=== PATIENT | female | born 2000 | race Caucasian/White ===

== ENCOUNTER → 2024-10-28 11:53 | Outpatient (BNVA) | payer SELFPAY | DX: R50.9 Fever, unspecified (principal) | CPT/HCPCS: 87400; 87426 ==

== ENCOUNTER 2025-03-17 08:41 | Emergency (ER) | payer MEDICAID, SELFPAY ==
[2025-03-17 08:49] VITALS: BP 116/62; PULSE 82; RESP 18; TEMP 36.7; O2SAT 100; BMI 20.6
--- NOTE | 2025-03-17 09:39 | XRR_ITS ---
PROCEDURE INFORMATION: Exam: XR Pelvis Exam date and time: 03/17/2025 9:46 AM Age: 24 years old Clinical indication: Pelvic pain post fall TECHNIQUE: Imaging protocol: Radiologic exam of the pelvis. Views: 1 or 2 view. COMPARISON: No relevant prior studies available. FINDINGS: Bones/joints: Unremarkable. No acute fracture. Soft tissues: Unremarkable. XR/XR pelvis 1-2V* [id number] IMPRESSION: No acute findings.
--- NOTE | 2025-03-17 09:39 | XRR_ITS ---
PROCEDURE INFORMATION: Exam: XR Left Foot Exam date and time: 03/17/2025 9:46 AM Age: 24 years old Clinical indication: Left; Lt lateral foot pain post fall down stairs this am TECHNIQUE: Imaging protocol: Radiologic exam of the left foot. Views: 3 or more views. COMPARISON: No relevant prior studies available. FINDINGS: Bones/joints: There is an acute longitudinal minimally displaced fracture involving the 5th metatarsal. No other fracture noted. Soft tissues: Normal. XR/XR foot LT min 3V* [id number] IMPRESSION: Acute fracture of the 5th metatarsal
--- NOTE | 2025-03-17 09:40 | ED_ITS ---
HPI - Extremity Problem General: Chief complaint: Extremity Injury, Lower Stated complaint: left foot injury Time Seen by Provider: 03/17/25 08:49 History of Present Illness: Chief complaint is fall on stairs and injury of the left foot. She states she did bruise her left hip but does not think it is broken. She states the pain is all in the foot. She did hit her head on the left side but states her head feels fine and she did not get knocked out and no serious blow or pain. She thinks her head is fine. No neck back chest or abdominal pain or injury. Related Data Previous Rx's ?Medication ?Instructions ?Recorded albuterol sulfate 90 mcg/actuation 2 puff inhalation Q 6H PRN 10/28/24 aerosol inhaler shortness of breath or wheez ing #8.5 grams xomeuanyiqjebla-faebmjbxgmlhdoi-IR 5 ml PO Q6H PRN col d symptoms #118 10/28/24 2 mg-30 mg-10 mg/5 mL oral syrup mL (Bromfed DM) ondansetron 4 mg disintegrating 4 mg PO Q6H PRN nausea and 10/28/24 tablet vomiting #12 tabs cyclobenzaprine 10 mg tablet 10 mg PO Q8H #20 tabs Allergies Allergy/AdvReac Type Severity Reaction Status Date / Time hydrocodone Allergy Severe ALGY-Difficulty Verified 10/28/24 11:48 Breathing [facility] ED PFSH: Social History Smoking and tobacco/nicotine status: never used tobacco/nicotine Physical Exam Narrative: EXAM NARRATIVE: Alert oriented talkative in no acute distress. Neck is supple. Pupils equal reactive to light. No vertebral tenderness over the neck or back. No bruising or external signs of trauma to the trunk or abdomen in exposed areas. No abdominal tenderness. No chest wall tenderness. Lung sounds are clear and heart regular rate and rhythm. Remains warm well-perfused. She has bruising on the left foot. Intact pulses motor and sensation. Moves ankle knee and hip freely. She has no pain with range of motion of the left hip. No pain with sitting up and movement of the back and no vertebral tenderness or bruising over the back. No rash in exposed areas. Pupils equal reactive to light. Full range ocular motion. Clear speech and intact motor and sensation. Course Vital Signs: Vital signs: Vital Signs Temperature 98.1 F 03/17/25 08:49 Pulse Rate 82 03/17/25 08:49 Respiratory Rate 18 03/17/25 08:49 Blood Pressure 116/62 03/17/25 08:49 Pulse Oximetry 100 03/17/25 08:49 Oxygen Delivery Me thod Room Air 03/17/25 08:49 MDM - Extremity (Nontraumatic) Medical Decision Making I ordered x-ray of the left foot and pelvic x-ray. Patient declines testing and states she has no male sexual partners and 0 chance of after informed discussion. I discussed imaging of her head which she declines and states her head is fine. I educated regarding head injury precautions. Pelvis x-tarsalray to my independent review and interpretation. She does have 1/5 metatarsal fracture on her left foot. I ordered postop shoe and crutches and advised to keep elevated. I discussed again with CT of the head and she declines. Advised head injury instructions. She states she gets severe vomiting with opiates. Will try Flexeril for pain and have her ice intermittently and elevate and orthopedic follow-up. I advised limits of plain film with her hip and nonweightbearing on that leg until cleared Lab Data Radiology Impressions Foot X-Ray 03/17/25 09:39 IMPRESSION: Acute fracture of the 5th metatarsal Pelvis X-Ray 03/17/25 09:39 IMPRESSION: No acute findings. All radiology interpretation(s) finalized by discharge Discharge Plan Discharge Patient Disposition: Home Clinical Impression: Fracture of left foot Condition: Stable Prescriptions: New cyclobenzaprine 10 mg tablet 10 mg PO Q8H Qty: 20 0RF No Action ondansetron 4 mg tablet,disintegrating 4 mg PO Q6H PRN (Reason: nausea and vomiting) Qty: 12 0RF Rx Instructions: 340b please yldrbytnlkcfhtn-cydaqjpyk-YV [Bromfed DM] 2-30-10 mg/5 mL syrup 5 ml PO Q6H PRN (Reason: cold symptoms) Qty: 118 0RF albuterol sulfate 90 mcg/actuation HFA aerosol inhaler 2 puff inhalation Q6H PRN (Reason: shortness of breath or wheezing) Qty: 8.5 0RF Discharge Orders: Discharge ED (Routine); Ordered 03/17/25 Ordered By: Josias Cerda Referrals: Coke,Job, DO [Physician, Orthopedics] Referral Note: left foot 5th metatarsal fracture Clinical Impression: Fracture of left foot Patient Instructions: Opioid Safety, Pain Management Activity Restrictions/Additional Instructions: Come back if concerning headache, vomiting, confusion. Keep your foot elevated. Come back if loss of feeling to your toes or loss of color, worsening hip pain, any worse or concerns. No weightbearing on your left leg until cleared by orthopedic surgeon. Follow-up with orthopedic surgeon in about 1 week. Print Language: Swiss Coding Level of Care Code ED Sales Leader for Wyatt Spears
[2025-03-17] MEDS: cyclobenzaprine 10 mg Tablet PO (10:30)
[2025-03-17 10:37] VITALS: BP 122/87; PULSE 88; RESP 18; O2SAT 99
== END 2025-03-17 10:40 | disposition home or self-care (01) ==
PROVIDERS: Emergency Provider Emergency Medicine
DX: S92.352A Displaced fracture of fifth metatarsal bone, left foot, initial encounter for closed fracture (principal); W10.9XXA Fall (on) (from) unspecified stairs and steps, initial encounter
CPT/HCPCS: 12345; 72170; 73630; 99284; E0114; J9999

== ENCOUNTER 2025-03-22 10:36 | Emergency (ER) | payer MEDICAID, SELFPAY ==
[2025-03-22 10:36] VITALS: BP 124/76; PULSE 75; RESP 20; TEMP 36.6; O2SAT 100; BMI 20.5
--- NOTE | 2025-03-22 10:50 | XR_ITS ---
WS: [id number] XR ankle LT min 3V* [id number] REASON FOR EXAM: fall FINDINGS: Subacute fracture of the midportion of the fifth metatarsal demonstrated on previous examination of 03/17/2025. No ankle fracture is identified. The joint spaces of the ankle are intact and well preserved. Diffuse soft tissue swelling around the ankle joint. No radiopaque foreign body. XR/XR ankle LT min 3V* [id number] IMPRESSION: Soft tissue swelling of the ankle joint. No acute bone or joint abnormality of the ankle joint. Subacute previously diagnosed fracture of the fifth metatarsal as above.
--- NOTE | 2025-03-22 10:50 | XR_ITS ---
WS: [id number] XR femur LT min 2V* [id number] REASON FOR EXAM: fall FINDINGS: Femoral neck and intertrochanteric region are intact. No abnormality of the femoral head. Femoral shaft is intact with no abnormality. XR/XR femur LT min 2V* [id number] IMPRESSION: No acute abnormality.
[2025-03-22 11:05] VITALS: RESP 18
[2025-03-22] MEDS: morphine 4 mg/mL SDV 1 mL IM (11:05)
[2025-03-22] MEDS: ondansetron hcl ODT 4 mg Tab PO (11:05)
[2025-03-22] MEDS: ketorolac 60 mg/2 mL INJ IM (11:05)
[2025-03-22 11:25] VITALS: BP 118/73; O2SAT 99
--- NOTE | 2025-03-22 12:14 | W.ED.EXTPRO ---
HPI - Extremity Problem General: Chief complaint: Extremity Injury, Lower Stated complaint: left foot injury Time Seen by Provider: 03/22/25 10:38 History of Present Illness: This patient is a 24-year-old white female who presents to the emergency department complaining of left foot pain and left hip pain. Patient states she broke her left foot 2 days ago. She was evaluated here. Today she tripped in the bathroom and landed on her left hip. She also exacerbated the pain in the left foot. Related Data Previous Rx's ?Medication ?Instructions ?Recorded albuterol sulfate 90 mcg/actuation 2 puff inhalation Q6H PRN 10/28/24 aerosol inhaler shortness of breath or wheezing #8.5 grams tzfllnpmkuqowlq-yftvgfvrurcakdm-HY 5 ml PO Q6H PRN cold symptoms #118 10/28/24 2 mg-30 mg-10 mg/5 mL oral syrup mL (Bromfed DM) ondansetron 4 mg disintegrating 4 mg PO Q6H PRN nausea and 10/28/24 tablet vomiting #12 tabs cyclobenzaprine 10 mg tablet 10 mg PO Q8H #20 tabs 03/17/25 Allergies Allergy/AdvReac Type Severity Reaction Status Date / Time hydrocodone Allergy Severe ALGY-Difficulty Verified 10/28/24 11:48 Breathing Review of Systems General: Reports: 10 or more systems reviewed and unremarkable except in HPI and below Musc: Reports: other (Left foot pain, left hip pain) [facility] ED PFSH: Social History Smoking and tobacco/nicotine status: never used tobacco/nicotine Physical Exam Const: COMMON NORMALS: no acute distress, patient oriented x3 and no limitations GENERAL APPEARANCE: cooperative and comfortable HENMT: COMMON NORMALS: normocephalic, atraumatic, Normal nasal mucous membranes and turbinates present, moist oral mucous membranes and oropharynx normal HEAD & SCALP: normal to inspection, normocephalic and atraumatic FACE & SINUS: normal facial exam NOSE: Normal nasal mucous membranes and turbinates present Eye: COMMON NORMALS: Equal, round and reactive pupils present, EOMs intact bilaterally and conjunctivae normal GENERAL EYE: appearance normal, both eyes and all related structures CONJUNCTIVA: Yes conjunctivae normal PUPIL: Yes Equal, round and reactive pupils present Neck/C-Spine: COMMON NORMALS: supple and no JVD Chest: COMMONS NORMALS: normal inspection of the chest Resp: COMMON NORMALS: normal respiratory effort and clear to auscultation bilaterally AUSCULTATION: clear to auscultation bilaterally Cardio: COMMON NORMALS: no JVD, regular rate, regular rhythm, No gallops present (Cardio), No murmurs present (Cardio) and No rub (Cardio) RATE: regular rate RHYTHM: regular rhythm GI: COMMON NORMALS: Normal to inspection, nondistended, normoactive bowel sounds present, Soft to palpation and non-tender AUSCULTATION: Yes normoactive bowel sounds PALPATION: Yes Soft to palpation : COMMON NORMALS: Yes no CVA tenderness BLADDER/KIDNEY EXAM: Yes no CVA tenderness Back/Pelvis: COMMON NORMALS: no CVA tenderness and thoracic and lumbar spine normal to inspection Extremity: COMMON NORMALS: normal to inspection NARRATIVE EXTREMITY EXAM: Patient had an Donny wrap around the left foot. Patient was placed in a postop shoe a couple of days ago following the fractured metatarsal. There is some bruising over the lateral aspect of the left foot. Full range of motion of the left ankle with moderate discomfort. Full range of motion of the left knee with no discomfort. Full range of motion of the left hip with mild discomfort. She does have pain over the greater trochanter to palpation. No gross deformity. Neuro: COMMON NORMALS: patient oriented x3 and CN's II-XII intact bilaterally Psych: COMMON NORMALS: mental status grossly normal, Normal thought process present and cooperative THOUGHT PROCESS: Normal thought process present Skin: COMMON NORMALS: no rashes or lesions noted, turgor normal and no jaundice GENERAL SKIN EXAM: no rashes or lesions noted and turgor normal Course Vital Signs: Vital signs: Vital Signs Temperature 97.8 F 03/22/25 10:36 Pulse Rate 75 03/22/25 10:36 Respiratory Rate 18 03/22/25 11:05 Blood Pressure 118/73 03/22/25 11:25 Pulse Oximetry 99 03/22/25 11:25 Oxygen Delivery Me thod Room Air 03/22/25 10:36 MDM - Extremity (Nontraumatic) Medical Decision Making X-rays of the femur were read by the radiologist as normal. X-rays of the ankle read by the radiologist as normal except for the subacute fracture of the fifth metatarsal. No change from x-ray previously. Patient was given injections of Toradol and morphine for her pain in the emergency department. She was discharged in stable condition. She does have pain medication at home. Recommended she follow-up with her primary care provider regarding the metatarsal fracture with possible referral to Ortho or podiatry. Lab Data Radiology Impressions Ankle X-Ray 03/22/25 10:50 IMPRESSION: Soft tissue swelling of the ankle joint. No acute bone or joint abnormality of the ankle joint. Subacute previously diagnosed fracture of the fifth metatarsal as above. Femur X-Ray 03/22/25 10:50 IMPRESSION: No acute abnormality. All radiology interpretation(s) finalized by discharge Discharge Plan Discharge Patient Disposition: Home Clinical Impression: Fracture of left foot Qualifiers: Encounter type: subsequent encounter Fracture type: closed Fracture healing: with routine healing Qualified Code(s): S92.902D - Unspecified fracture of left foot, subsequent encounter for fracture with routine healing Contusion of hip Qualifiers: Encounter type: initial encounter Laterality: left Qualified Code(s): S70.02XA - Contusion of left hip, initial encounter Condition: Stable Prescriptions: No Action ondansetron 4 mg tablet,disintegrating 4 mg PO Q6H PRN (Reason: nausea and vomiting) Qty: 12 0RF Rx Instructions: 340b please nzsxeqzbfbvwqrn-ubsaahbqb-VX [Bromfed DM] 2-30-10 mg/5 mL syrup 5 ml PO Q6H PRN (Reason: cold symptoms) Qty: 118 0RF albuterol sulfate 90 mcg/actuation HFA aerosol inhaler 2 puff inhalation Q6H PRN (Reason: shortness of breath or wheezing) Qty: 8.5 0RF cyclobenzaprine 10 mg tablet 10 mg PO Q8H Qty: 20 0RF Discharge Orders: Discharge ED (Routine); Ordered 03/22/25 Ordered By: Dewayne Thompson Patient Instructions: Fractures - Metatarsal, Contusion in Adults (ED), Pain Management Print Language: Estonian Coding Level of Care Code ED Hide Puller for Wyatt Spears
[2025-03-22 12:53] VITALS: BP 105/60; PULSE 77; RESP 16; O2SAT 99
== END 2025-03-22 12:54 | disposition home or self-care (01) ==
PROVIDERS: Emergency Provider Emergency Medicine
DX: S92.902D Unspecified fracture of left foot, subsequent encounter for fracture with routine healing (principal); S70.02XA Contusion of left hip, initial encounter; X58.XXXD Exposure to other specified factors, subsequent encounter; W01.0XXA Fall on same level from slipping, tripping and stumbling without subsequent striking against object, initial encounter
CPT/HCPCS: 73552; 73610; 96372; 99284; J1885; J2270; Q0162

== ENCOUNTER → 2025-04-10 12:36 | Outpatient (BNVA) | payer MEDICAID, SELFPAY | PROVIDERS: PCP Family Medicine; Visit Provider Podiatrist Foot & Ankle Surgery | DX: S92.352A Displaced fracture of fifth metatarsal bone, left foot, initial encounter for closed fracture (principal); S93.402A Sprain of unspecified ligament of left ankle, initial encounter; X58.XXXA Exposure to other specified factors, initial encounter | CPT/HCPCS: 73630 ==

== ENCOUNTER → 2025-05-01 12:41 | Outpatient (BNVA) | payer MEDICAID, SELFPAY | PROVIDERS: PCP Family Medicine; Visit Provider Podiatrist Foot & Ankle Surgery | DX: S92.352G Displaced fracture of fifth metatarsal bone, left foot, subsequent encounter for fracture with delayed healing (principal); X58.XXXD Exposure to other specified factors, subsequent encounter | CPT/HCPCS: 73630 ==

== ENCOUNTER → 2025-05-22 12:41 | Outpatient (BNVA) | payer MEDICAID, SELFPAY | PROVIDERS: PCP Family Medicine; Visit Provider Podiatrist Foot & Ankle Surgery | DX: S92.352G Displaced fracture of fifth metatarsal bone, left foot, subsequent encounter for fracture with delayed healing (principal); X58.XXXD Exposure to other specified factors, subsequent encounter | CPT/HCPCS: 73630 ==

== ENCOUNTER 2025-06-07 10:10 | Day surgery (SDC) | payer MEDICAID, SELFPAY ==
[2025-06-07] VITALS (11 sets, daily range): BP systolic 90–121; BP diastolic 47–86; PULSE 49–78; RESP 16–20; TEMP 36.4–36.8; O2SAT 97–100; BMI 20.5
--- NOTE | 2025-06-07 | XR_ITS ---
WS: [id number] C-ARM RADIOGRAPHS LEFT FOOT; 1 IMAGES HISTORY: LEFT FOOT SURGERY COMPARISON: 05/22/2025 Intraoperative screw fixation oblique fracture mid fifth metatarsal. XR/XR foot LT min 3V* [id number] IMPRESSION: Intraoperative imaging during screw fixation of fifth metatarsal fracture.
--- NOTE | 2025-06-07 11:38 | W.PM.OPSUD ---
Surgery/Procedure H&P Update DATE OF PROCEDURE: June 07, 2025 DATE H&P PERFORMED: 05/22/25 H&P UPDATE INFORMATION: I have reviewed H&P completed within last 30 days, I have examined patient prior to procedure, No changes to prior documentation and Risks and benefits of the procedure reviewed PREOP DIAGNOSIS: Left fifth metatarsal fracture PLANNED PROCEDURE: Operation Date: 06/07/25 12:10 Proposed Procedures p ORIF Metatarsal left fifth metatarsal fracture(Left) - Jonatan Chang DPM
[2025-06-07 11:48] LABS: OR HCG Qualitative Urine Negative (Negative)
[2025-06-07] MEDS: ceFAZolin 2,000 mg SDV 2000 MG IVP (12:00)
[2025-06-07] MEDS: BUPivacaine liposome 13.3 mg/mL SDV 20 mL 266 MG INJECTION (12:03)
[2025-06-07] MEDS: BUPivacaine 0.5% INJ 30 mL 20 ML INJECTION (12:03)
--- NOTE | 2025-06-07 12:48 | P.OP_ITS ---
Operative Report Date of procedure: June 07, 2025 Pre-op diagnosis: Closed displaced fracture of fifth metatarsal bone of left foot with delayed healing, subsequent encounter S92.352G Post-op diagnosis: Closed displaced fracture of fifth metatarsal bone of left foot with delayed healing, subsequent encounter S92.352G Post-op findings: None Procedure done: Open reduction internal fixation left fifth metatarsal fracture. CPT code 92049. 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 The surgical procedure will involve debridement of non-healing tissue and fixation with a titanium plate and screws, depending on the intraoperative assessment of bone quality. Postoperative care will include immobilization with a boot and crutches for six weeks, followed by transition to a shoe. The patient will be monitored with follow-up x-rays every two weeks to assess healing progress. 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 The surgical procedure will involve debridement of non-healing tissue and fixation with a titanium plate and screws, depending on the intraoperative assessment of bone quality. Postoperative care will include immobilization with a boot and crutches for six weeks, followed by transition to a shoe. The patient will be monitored with follow-up x-rays every two weeks to assess healing progress. 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 Given the lack of bony healing at nine weeks post-injury, surgical fixation is considered to enhance healing and restore function. The surgical approach will involve debridement and fixation with a titanium plate and screws, tailored to intraoperative findings. The goal is to achieve stable fixation and promote bone healing, with postoperative care including immobilization and regular follow-up to monitor progress. I reviewed at length with the patient, the risks, potential complications, benefits, alternatives, expectations, and typical outcomes associated with the surgery. The risks and potential complications were explained in detail, including but not limited to infection, wound dehiscence or soft tissue complications, bleeding and hematoma, chronic edema, neuritis or nerve damage producing numbness or chronic pain, CRPS, failure to relieve pain or worsening pain, thick / painful / unsightly scar, limited motion / stiffness, malposition, delayed union, malunion, or nonunion, fracture, reaction to implants, anesthetic complications, venous thromboembolism, and deformity recurrence. I discussed the notion of no regrets with the patient as it pertains to complications and outcomes. The patient seemed to understand the nature of the proposed care and required convalescence. They asked appropriate questions, answered to their satisfaction. They are aware no guarantees can be made as to a satisfactory outcome and they understand there may be other possible unforeseen complications or outcomes not listed here that will be treated accordingly if they arise. There were no written or implied guarantees given to the patient. They gave informed consent to proceed. Procedure: Under mild sedation the patient was brought to the operating room and remained on the gurney in supine position. A timeout was performed. Anesthesia was then administered by the anesthesia service. Local anesthesia injected by myself consisting of 20 cc of 0.5 Marcaine in a reverse Silveira block fashion followed by 20 cc of Exparel subcutaneous in a grid like fashion at the proximal portion of the operative site. Well-padded pneumatic tourniquet applied to the left ankle. The left lower extremity was scrubbed, prepped and draped utilizing normal aseptic technique. Left foot and ankle were then exanguinated with Esmarch bandage and tourniquet inflated to 250 mmHg. Attention was directed to the dorsal lateral aspect of the left fifth metatarsal where a linear longitudinal incision was made through skin with #15 blade with dissection carried down to the layer of periosteum utilizing a combination of sharp and blunt technique. Care was taken to retract and preserve neurovascular and tendon structures. All bleeders were ligated and cauterized as necessary. Fracture was identified and curettaged of fracture hematoma followed by reduction and fixation utilizing standard AO technique with Kingston 2 mm partially-threaded cannulated screws x 3 perpendicular to the fracture site with excellent bony apposition and compression noted. The incision was irrigated with saline solution in AP oblique and lateral view of intraoperative C arm confirmed excellent placement of hardware not violating adjacent structures. The incision was irrigated and closed in a layered fashion with periosteum reapproximated 3-0 Vicryl, subcutaneous tissue with 4-0 Vicryl and skin with 4-0 nylon. The incision was then dressed with Xeroform, 4 x 4 gauze, Kerlix and Donny wrap followed by application of a cam boot to the left lower extremity. Tourniquet was deflated and a prompt hyperemic response is noted to the distal digits of the left foot. Patient tolerated the procedure and anesthesia well and was transferred to the PACU with vital signs stable and vascular status intact. Following a period of postoperative monitoring she will be discharged home without home care instructions and scheduled follow-up.
--- NOTE | 2025-06-07 12:48 | W.PM.BPON ---
Date of Procedure: 12/31/23 Surgeon: Jonatan Chang DPM Farm Operator(s): Amy Procedure(s) performed: Open reduction internal fixation left fifth metatarsal fracture. Findings of the procedure(s): Left fifth metatarsal fracture Estimated blood loss: 2 mL Specimen(s) removed: None Post-operative diagnosis: Left fifth metatarsal fracture.
--- NOTE | 2025-06-07 15:37 | ANE.PACU2 ---
Inpatient post-anesthesia follow up: Airway intact: Yes Vital signs: Temperature 97.9 F Pulse Rate 51 Respiratory Rate 17 Blood Pressure 121/86 Pulse Oximetry 98 Oxygen Delivery Me thod Room Air Oxygen Flow Rate Fraction of Inspir ed Oxygen Hydration adequate: Yes Nausea and vomiting: No Pain level: 1 Mental status: Baseline
== END 2025-06-07 14:17 | disposition home or self-care (01) ==
PROVIDERS: Anesthesiology; PCP Family Medicine; Visit Provider Podiatrist Foot & Ankle Surgery
PROC: (CPT 28485; principal; 2025-06-07 12:00)
DX: S92.352G Displaced fracture of fifth metatarsal bone, left foot, subsequent encounter for fracture with delayed healing (principal); W10.9XXD Fall (on) (from) unspecified stairs and steps, subsequent encounter
CPT/HCPCS: 28485; 73630; 76000; 81025; C1713; J0666; J0690; J1885; J2704; J3010; J3490; J7030; J9999

== ENCOUNTER → 2025-06-21 13:05 | Outpatient (BNVA) | payer MEDICAID, SELFPAY | PROVIDERS: PCP Family Medicine; Visit Provider Podiatrist Foot & Ankle Surgery | DX: Z98.890 Other specified postprocedural states (principal); S92.352G Displaced fracture of fifth metatarsal bone, left foot, subsequent encounter for fracture with delayed healing; X58.XXXD Exposure to other specified factors, subsequent encounter | CPT/HCPCS: 73630 ==

== ENCOUNTER 2025-07-07 20:18 | Emergency (ER) | payer MEDICAID, SELFPAY ==
--- OUTSIDE RECORDS SUMMARY | 2015-02-25 09:56 | XMS_ITS | Continuity of Care Document ---
Author Organization [facility] Address [address] [place] [address] [place] [address] Phone Care Team Providers Care Butcher Name Role Phone Sofiya Swain MD Unavailable Unavailabl e Allergies, Adverse Reactions, Alerts Substance Reaction Status Criticality MOLD EXTRACTS Active No Information POLLEN, MICRONIZED Active No Inform ation house dust Active No Information No Known Drug Allergies Active No I nformation Medications Medication Instructions Dosage Effective Dates (start - stop) Status Comments Focalin XR 20 mg capsule,extended release 20 mg daily - Active loratadine 10 mg tablet 1 Tablet daily - Active ProAir HFA 90 mcg/actuation aerosol inhaler 2 (two) pufs q4h prn wheeze - Active Qvar 80 mcg/actuation Metered Aerosol oral inhaler 2 (two) Puff(s) two times daily with spacer - Active Focalin XR 20 mg capsule,extended release 20 mg daily - No Longer Active Advance Directives Directive Yes / No Effective Date File Name No Information Encounters Encounter Description Practice Location Reason(s) For Visit Diagnoses Date Provider Providers Copied on Encounter [address] [place], [place], [id number], [place] tel:[phone] [facility] No Information 5 Wiliam Arriaza. [address] [place] [address], [id number], [place]. tel:[phone] [place], [id number], [place] tel: [phone] [facility] No Information 5 Erik Hinojosa. [address] [facility], [address], [place], [address], [place]. tel:[phone] , [place], [id number], [place] tel: [phone] [facility] ADD/ADHD (chief complaint) No Information 5 Stanton England. [address] [place] [address], [place], [id number], [place]. tel:[phone] Referring Provider: Samanta Eid [address] [place] [address] Yonathan, [place], [address] . tel:[phone] , [place], [place], [id number], [place] tel:[phone] [facility] ADD/ADHD (chief complaint) foot pain (chief complaint) No Information 4 Stanton England. [address] [place] [address], [place], [id number], [place]. tel:[phone] Referring Provider: Samanta Eid [address] [place] [address] Yonathan, [place], [address] . tel:[phone] [place], [id number], [place] tel:[phone] [facility] No Information 4 Wiliam Arriaza. [address] [place] [address], [id number], [place]. tel:[phone] [place], [id number], [place] tel: [phone] [facility] No Information 4 Provider Conversion. . [address] , [place], [place], [id number], [place] tel:[phone] [facility] No Information 2- 3 Unidentified Provider. [address] [place] [address], [address], [place]. [address] , [place], [place], [id number], [place] tel:[phone] [facility] No Information - 3 Unidentified Provider. [address] [place] [address], [address], [place]. [address] , [place], [id number], [place] tel:[phone] [facility] No Information 1 Unidentified Provider. [address] [place] [address], [address], [place]. [address] , [place], [id number], [place] tel:[phone] [facility] No Information 1 Unidentified Provider. [address] [place] [address], [address], [place]. [address] , [place], [place], [id number], [place] tel:[phone] [facility] No Information 1 Unidentified Provider. [address] [place] [address], [address], [place]. [address] , [place], [place], [id number], [place] tel:[phone] [facility] No Information 1 Unidentified Provider. [address] [place] [address], [address], [place]. [address] [place], [id number], [place] tel:[phone] [facility] No Information -200 1 Unidentified Provider. [address] [place] [address], [address], [place]. [address] [place], [id number], tel:[phone] [facility] No Information 4200 1 Unidentified Provider. [address] [place] [address], [facility], . [address] , [place], [place], [id number], tel:[phone] [facility] No Information 4200 1 Unidentified Provider. [address] [place] [address], [facility], . [address] , [place], [id number], tel: [phone] [facility] No Information 1200 0 Unidentified Provider. [address] [place] [address], [facility], . [address] , [place], [place], [id number], tel: [phone] [facility] No Information 9-200 0 Unidentified Provider. [address] [place] [address], [facility], . [address] , [place], [place], [id number], [place] tel: [phone] [facility] No Information 8-200 0 Unidentified Provider. [address] [place] [address], [facility], . Family History Family Member Type Diagnosis Age At Onset Family H/O Problem (finding) FHX: Bipolar Disorder Family H/O Problem (finding) FHX: Diabetes Family H/O Problem (finding) FHX: Hypertension Family H/O Problem (finding) FHX: Diabetes Family H/O Problem (finding) FHX: Migraine Family H/O Problem (finding) FHX: Migraine Family H/O Problem (finding) FHX: Bipolar Disorder Family H/O Problem (finding) FHX: Asthma Mother Problem (finding) migraine Maternal Grandmother Problem (finding) migraine Family H/O Problem (finding) FHX: Asthma Family H/O Problem (finding) FHX: Hypertension Immunizations Vaccine Date Status Comments Influenza, injectable, quadrivalent, preservative free, 3 yrs or older administered Source: New Immuniz ation Record Influenza (3 years and up) administered N ote: Recorded 06/29/2013 11:33AM by Cass Levin LPN, Office Visit ; Source: New Immunization Record Influenza (3 years and up) administered N ote: Recorded 10/31/2012 3:48PM by ROXANNA Mcintyre, Office Visit ; Source: New Immunization Record Influenza (3 years and up) administered N ote: Recorded 04/26/2013 4:38PM by Cass Levin LPN, Review ; Source: New Immunization Record HPV, quadrivalent administered Note: Bony rded 04/26/2013 4:38PM by Cass Levin LPN, Review ; Source: New Immunization Record Hep A pediatric/adolescent ( 2 dose) administered Note: Recorded 04/26 4:38PM by Cass Levin LPN, Review ; Source: New Immunization Record Meningococcal administered Note: Recorded 04/26/2013 4:48PM by Cass Levin LPN, Review ; Source: New Immunization Record IPV administered Note: Recorded 04/26/2013 4:30PM by Cass Levin LPN, Review ; Source: New Immunization Record HPV, quadrivalent administered Note: Bony rded 04/26/2013 4:38PM by Cass Levin LPN, Review ; Source: New Immunization Record Influenza (3 years and up) administered N ote: Recorded 04/26/2013 4:39PM by Cass Levin LPN, Review ; Source: New Immunization Record Tdap (7 years and up) administered Note: Recorded 04/26/2013 4:47PM by Cass Levin LPN, Review ; Source: New Immunization Record Varicella #1 administered Note: Recorded 04/26/2013 4:48PM by Cass Levin LPN, Review ; Source: New Immunization Record MMR #1 administered Note: Recorded 04/26/2013 4:40PM by Cass Levin LPN, Review ; Source: New Immunization Record Hep A pediatric/adolescent ( 2 dose) #1 administered Note: Recorded 04/26 4:39PM by Cass Levin LPN, Review ; Source: New Immunization Record HPV, quadrivalent #1 administered Note: R ecorded 04/26/2013 4:39PM by Cass Levin LPN, Review ; Source: New Immunization Record HIB (HbOC) administered Note: Recorded 04/26/2013 4:33PM by Cass Levin LPN, Review ; Source: New Immunization Record DTaP administered Note: Recorded 04/26/2013 4:29PM by Cass Levin LPN, Review ; Source: New Immunization Record Varicella administered Note: Recorded 04/26/2013 4:34PM by Cass Levin LPN, Review ; Source: New Immunization Record MMR administered Note: Recorded 04/26/2013 4:31PM by Cass Levin LPN, Review ; Source: New Immunization Record IPV administered Note: Recorded 04/26/2013 4:30PM by Cass Levin LPN, Review ; Source: New Immunization Record HIB (HbOC) administered Note: Recorded 04/26/2013 4:33PM by Cass Levin LPN, Review ; Source: New Immunization Record Hep B pediatric/adolescent administered N ote: Recorded 04/26/2013 4:34PM by Cass Levin LPN, Review ; Source: New Immunization Record DTaP administered Note: Recorded 04/26/2013 4:29PM by Cass Levin LPN, Review ; Source: New Immunization Record IPV administered Note: Recorded 04/26/2013 4:30PM by Cass Levin LPN, Review ; Source: New Immunization Record HIB (HbOC) administered Note: Recorded 04/26/2013 4:33PM by Cass Levin LPN, Review ; Source: New Immunization Record DTaP administered Note: Recorded 04/26/2013 4:29PM by Cass Levin LPN, Review ; Source: New Immunization Record DTaP administered Note: Recorded 04/26/2013 4:29PM by Cass Levin LPN, Review ; Source: New Immunization Record HIB (HbOC) administered Note: Recorded 04/26/2013 4:33PM by Cass Levin LPN, Review ; Source: New Immunization Record IPV administered Note: Recorded 04/26/2013 4:29PM by Cass Levin LPN, Review ; Source: New Immunization Record Hep B pediatric/adolescent administered N ote: Recorded 04/26/2013 4:34PM by Cass Levin LPN, Review ; Source: New Immunization Record Hep B pediatric/adolescent administered N ote: Recorded 04/26/2013 4:33PM by Cass Levin LPN, Review ; Source: New Immunization Record Payers Payer name Insurance type Covered constitution party ID Authoriza tikevin(s) [employer] - [id number] [id number] Social History Type Description Quantity Date Captured Comments Alcohol Use Details Unknown Caffeine Use Details Unknown Tobacco Use Status No Information Smoking Status No Information Sex Female Chief Complaint And Reason For Visit No Information Reason For Referral Reason For Referral No Information Plan Of Treatment Date Type Action Status Goal Depression screening. Due on due Goal Depression screening. Due on due Goal Depression screening. Due on due Referral Ordered: Critical Care Medicine - Pediatric (related to Adjustment disorder w/ depressed mood) ordered Referral Ordered: Referrals: Critical Care Medicine - Pediatric ordered Referral Ordered: Podiatry (related to Pes planus) ordered Referral Ordered: Referrals: Podiatry. Evaluate and treat ordered History Of Present Illness Encounter Date Complaint History Of Prese nt Illness ADD/ADHD (comments) Medication i ncreased at last visit in August. It definitely helped. She is very stressed and feeling depressed. She does look forward to catholic and friends. Tried counselling in the past, did not go well, mother was not happy with facility. Child has been struggling since parents , mother remarried, had new baby, and she is struggling with early college high school. ADD/ADHD The behavior is described as problems at school. Symptoms are associated with prior diagnosis of ADD/ADHD. Behaviors have persisted for more than 6 months. Symptoms are not associated with known learning disabilities or pertinent past medical history. Relevant symptoms of inattention include difficulty organizing tasks or activities, difficulty sustaining attention in tasks or play, not seeming to listen when spoken to directly, being forgetful in daily activities, losing things necessary for tasks or activities and often not following through on instructions/failing to finish assignments. Pertinent negatives of hyperactivity include described as on the go or driven by a motor, difficulty engaging in quiet activities, leaving seat when expected to remain seated and talking excessively. Pertinent negatives of impulsivity include blurting out answers before questions are completed, difficulty waiting turn and often interrupting or intruding on others. Pertinent negatives of inattention include avoiding or disliking tasks which require sustained mental effort. foot pain Location: foot. Context: there is no injury. The pain is aggravated by climbing (and descending) stairs, walking and standing. There are no relieving factors. Pertinent negatives include bruising, crepitus, decreased mobility, difficulty initiating sleep, joint instability, joint tenderness, limping, locking, nocturnal awakening, nocturnal pain, numbness, popping, spasms, swelling, tingling in the arms, tingling in the legs and weakness. Additional information: has flat feet and fatigues easily with activities, walking, standing for long periods of time. mother mentioned to air pollution auditor and he said if she is referred he can help. ADD/ADHD The behavior is described as problems at school. Symptoms are associated with prior diagnosis of ADD/ADHD. Behaviors have persisted for more than 6 months. Symptoms are not associated with known learning disabilities or pertinent past medical history. Relevant symptoms of inattention include difficulty organizing tasks or activities, difficulty sustaining attention in tasks or play, not seeming to listen when spoken to directly, easily distracted by extraneous stimuli, being forgetful in daily activities, losing things necessary for tasks or activities, making careless mistakes in schoolwork, work, or other activities and often not following through on instructions/failing to finish assignments. Pertinent negatives of hyperactivity include described as on the go or driven by a motor, difficulty engaging in quiet activities, fidgeting/squirming, leaving seat when expected to remain seated, restlessness, running about or climbing excessively in inappropriate situations and talking excessively. Pertinent negatives of impulsivity include blurting out answers before questions are completed, difficulty waiting turn and often interrupting or intruding on others. Pertinent negatives of inattention include avoiding or disliking tasks which require sustained mental effort. Additional information: medication wearing off by end of 2nd period (before lunch). does not take on weekends/holidays. Functional Status Date Functional Assessmen t No Information Instructions Date Instruction Additional Infor mation No Information Assessments Type Assessment Date No Information Patient Care Teams Name Effective Dates (start - stop) Status Members No Information
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
[2025-07-07 20:22] VITALS: BP 119/68; PULSE 113; RESP 12; TEMP 36.7; O2SAT 98; BMI 20.5
--- OUTSIDE RECORDS SUMMARY | 2025-07-07 20:24 | XMS_ITS | Clinical Summary ---
Author Organization [facility] Address [address] [facility] [address] [place] [address] Phone Care Team Providers Care Weir Fisher Name Role Phone Raul Espinosa MD Primary Care Provider [phone] Allergies Active Allergy Reactions Criticality Noted Date Comments Hydrocodone Nausea and Vomiting Low 04/05/2023 Medications albuterol sulfate HFA 90 mcg/actuation aerosol inhalerIndication s:Asthma, unspecified asthma severity, unspecified whether complicated, unspecified whether persistent Take 2 Puffs by inhalation every 6 hours as needed for Shortness of Breath. 8.5 Gram 5 4 Active Miscellaneous Medical SupplyIndications :Contusion of left hip, subsequent encounter,Closed nondisplaced fracture of fifth metatarsal bone of left foot with routine healing, subsequent encounter,Work related injury Crutches 1 Each 5 Active traMADol (ULTRAM) 50 mg tabletIndications :Contusion of left hip, subsequent encounter,Closed nondisplaced fracture of fifth metatarsal bone of left foot with routine healing, subsequent encounter,Sprain of left ankle, unspecified ligament, subsequent encounter Take 1 Tablet (50 mg) by mouth every 8 hours as needed for Pain. 20 Tablet 5 Active cyclobenzaprine (FLEXERIL) 10 mg tabletIndications :Contusion of left hip, subsequent encounter,Closed nondisplaced fracture of fifth metatarsal bone of left foot with routine healing, subsequent encounter,Sprain of left ankle, unspecified ligament, subsequent encounter Take 1 Tablet (10 mg) by mouth 3 times daily as needed for Spasm or Pain. 30 Tablet 5 Active venlafaxine (EFFEXOR XR) 150 mg Extended Release 24 hour capsuleIndication s:Anxiety,Mood changes Take 1 capsule by mouth once daily 100 Capsule 2 Active Active Problems Problem Noted Date Diagnosed Date Anxiety 05/14/2025 Asthma 05/14/2025 Depression 05/14/2025 PTSD (post-traumatic stress disorder) 05/14/2025 Interstitial cystitis 07/24/2024 Acute cystitis without hematuria 01/25/2024 Influenza A 01/25/2024 Peptic ulcer disease 04/05/2023 Acute gastroenteritis 04/05/2023 Encounters Date Type Department Care Team Description 07/04/2025 External Device Data [facility] Provider, Abstract 06/26/2025 External Device Data [facility] Provider, Abstract 06/26/2025 External Device Data [facility] Provider, Abstract 06/19/2025 External Device Data [facility] Provider, Abstract 06/05/2025 External Device Data [facility] Provider, Abstract 05/23/2025 External Device Data [facility] Provider, Abstract 05/21/[address] [address] Raul Espinosa MD 05/15/2025 External Device Data [facility] Provider, Abstract 05/15/2025 External Device Data [facility] Provider, Abstract 05/14/2025 1:40 PM CDT Office Visit [address] [phone] Yesenia Clemente NP Encounter for follow-up examination (Primary Dx); Closed nondisplaced fracture of fifth metatarsal bone of left foot with routine healing, subsequent encounter; Work related injury; History of falling 05/04/2025 [facility] [address] [address] Raul Espinosa MD Anxiety; Mood changes 05/02/2025 External Device Data [facility] Provider, Abstract 05/02/2025 External Device Data [facility] Provider, Abstract 04/17/2025 External Device Data [facility] Provider, Abstract 04/13/2025 3:20 PM CDT Office Visit [address] [address] Raul Espinosa MD Sprain of left ankle, unspecified ligament, subsequent encounter (Primary Dx); Contusion of left hip, subsequent encounter; Closed nondisplaced fracture of fifth metatarsal bone of left foot with routine healing, subsequent encounter; Work related injury 04/06/[address] [facility] [address] [facility] [address] [place] [phone] Raul Espinosa MD Pharmacy Change from Last 3 Months Immunizations Immunization Administration Dates Next Due INFLUENZA VACCINE TRIVALENT SPLIT VIRUS, (6 MOS UP), 0.5ML (PF), IM 07/06/2024 Social History Tobacco Use Types Packs/Day Years Used Date Smoking Tobacco: Former Cigarettes Smokeless Tobacco: Never Tobacco Cessation:Counseling Given: No Alcohol Use Standard Drinks/Week Comments Not Currently 0 (1 standard drink = 0.6 oz pur e alcohol) occassional Feeling Safe Answer Date Recorded Are you in a relationship wi th someone who hurts you emotionally and/or physically? No 07/07/2024 Comments No Sex and Gender Information Value Date Recorded Sex Assigned at Not on file Legal Sex Female 1:33 PM CDT Gender Identity Not on file Sexual Orientation Not on file Last Filed Vital Signs Vital Sign Reading Time Taken Comments Blood Pressure 106/67 05/14/2025 1:44 PM CDT Pulse 73 05/14/2025 1:44 PM CDT Temperature 36.9 C (98.5 F) 05/14/2025 1:44 PM CDT Respiratory Rate 19 05/14/2025 1:44 PM CDT Oxygen Saturation 99% 05/14/2025 1:44 PM CDT Inhaled Oxygen Concentration - - Weight 56.6 kg (124 lb 12.8 oz) 05/14/2025 1:44 PM CDT Height 165.1 cm (5' 5 ) 05/14/2025 1:44 PM CDT Body Mass Index 20.77 05/14/2025 1:44 PM CDT Plan of Treatment Health Maintenance Due Date Last Done Comments HPV VACCINES (1 - 3-dose series) 2015 DTAP/TDAP/TD VACCINES (1 - Tdap) 2019 HEPATITIS B VACCINES (1 of 3 - 19+ 3-dose series) 2019 CERVICAL CANCER SCREENING 2021 HPV/Cotest (21-29) 2021 PAP SMEAR 2021 INFLUENZA VACCINE (#1) 2025 4, 01/28/2024 Preventative Visit-Managed Medicaid 05/14/2026 Postponed from 05/25 (Therapeutic Plan Prohibits) Insurance [facility] [id number] WORKERS COMP Member Subscriber Plan / Payer (Ef fective 2025-Present) Name:Sofiya Fan Relation to Subscriber:Employee Name:[id number] [employer] (Work) Address: [facility] [place] [address] Payer ID:Not on file Group ID:Not on file Type:Other Address: [facility] [address] [place] [id number] Care Teams Weir Fisher Relationship Specialty Start Date End Date Raul Espinosa MD [address] [id number] PCP - General Family Practice 01/30/24
--- OUTSIDE RECORDS SUMMARY | 2025-07-07 20:24 | XMS_ITS | Encounter Summary ---
Author Organization [employer] Address [address] [place] [address] Care Team Providers Care Forwarder Operator Name Role Phone Raul Espinosa MD Primary Care Provider [phone] Encounter Details Date Type Department Care Team (Late st Contact Info) Description 07/04/2025 External Device Data [facility] Provider, Abstract NO ADDRESS ON FILE Social History Tobacco Use Types Packs/Day Years Used Date Smoking Tobacco: Former Cigarettes Smokeless Tobacco: Never Alcohol Use Standard Drinks/Week Comments Not Currently [...] on file Sexual Orientation Not on file documented as of this encounter Plan of Treatment Not on file documented as of this encounter Visit Diagnoses Not on filedocumented in this encounter Care Teams Forwarder Operator Relationship Specialty Start Date End Date Raul Espinosa MD [address] [facility] [address] [place] [phone] PCP - General Family Practice 01/30/24 documented as of this encounter
[2025-07-07 21:07] VITALS: BP 118/55; PULSE 96; O2SAT 98
--- NOTE | 2025-07-07 21:34 | XRR_ITS ---
PROCEDURE INFORMATION: Exam: XR Abdomen Exam date and time: 07/07/2025 9:35 PM Age: 25 years old Clinical indication: Abdominal pain; Additional info: Stabbing abd pain TECHNIQUE: Imaging protocol: Radiologic exam of the abdomen. Views: 2 Views. Upright and supine views. COMPARISON: No relevant prior studies available. FINDINGS: Gastrointestinal tract: Normal. No bowel dilation. Intraperitoneal space: Normal. No free air. Bones/joints: Unremarkable for age. XR/XR acute abdomen series [id number] IMPRESSION: No acute findings.
[2025-07-07 22:05] LABS: Hematocrit 38.8 % (36-47); Hemoglobin 12.80 g/dL (11.27-16.99); Mean Corpuscular HGB Conc 33.0 g/dL (30-55); Mean Corpuscular Hemoglobin 28.6 pg (27-33); Mean Corpuscular Volume 86.8 fl (85-98); Nucleated Red Blood Cells % 0 %; Platelet Count 240 10^3/cmm (157-399); Red Blood Count 4.47 10^6/uL (3.85-5.65); White Blood Count 6.82 10^3/uL (3.29-11.43)
[2025-07-07 22:30] VITALS: BP 118/60; PULSE 94; O2SAT 98
[2025-07-07 22:42] LABS: Alanine Aminotransferase 9 U/L (0-33); Albumin Level 4.5 g/dL (3.5-5.2); Alkaline Phosphatase 60 U/L (35-105); Anion Gap 12.8 (5-19); Aspartate Amino Transferase 11 U/L (0-32); Blood Urea Nitrogen 9 mg/dL (6-20); Calcium 9.0 mg/dL (8.5-10.5); Carbon Dioxide 27 mmol/L (22-29); Chloride 102 mmol/L (98-107); Creatinine Clr Calc Pharmacy 127.8823; Globulin 2.7 g/dL (1.3-4.6); Glucose 79 mg/dL (65-115); Lipase 37 U/L (13-60); Osmolality Calculated 284 mOsm/kg (285-295); Potassium 3.8 mmol/L (3.5-5.1); Sodium 138 mmol/L (136-145); Total Protein 7.2 g/dL (6.6-8.7)
--- NOTE | 2025-07-07 22:55 | W.ED.ABDPA2 ---
HPI - Abdominal Pain General: Chief Complaint: Abdominal Pain Stated Complaint: Stomach pain, Sob, lt hurting,spitting up blood Time Seen by Provider: 07/07/25 21:25 History of Present Illness: Patient is a 25-year-old female with worsening abdominal pain x 1 week. Patient has pertinent information with recent narcotic use due to appropriate left metatarsal fracture. She is now in a boot. She has had increasing pain mainly on this right upper quadrant. It was worse today. She has association of nausea. She is passing gas. She feels as if this is a stabbing pain in her right side. It encompasses her right lower rib laterally. She does look in pain at bedside. She has association of shortness of breath. Associated Symptoms: Reports nausea; Denies change in stool character, chills, fever(s) and vomiting Related Data Date of Last Menstrual Period: 07/04/25 Home Medications ?Medication ?Instructions ?Recorded ?Confirmed venlafaxine 150 mg 150 mg PO DAILY 03/22/25 06/27/25 capsule,extended release 24 hr tramadol 50 mg tablet 50 mg PO PRN PRN Pain 03/27/25 06/27/25 Previous Rx's ?Medication ?Instructions ?Recorded albuterol sulfate 90 mcg/actuation 2 puff inhalation Q6H PRN 10/28/24 aerosol inhaler shortness of breath or wheezing #8.5 grams cyclobenzaprine 10 mg tablet 10 mg PO TID PRN muscle spasm 7 04/10/25 days #21 tabs carbon fiber insole #1 ea 05/01/25 lactulose 10 gram/15 mL oral 15 ml PO DAILY PRN constipation 07/08/25 solution #237 mL Allergies Allergy/AdvReac Type Severity Reaction Status Date / Time hydrocodone Allergy Severe ALGY-Difficulty Verified 07/07/25 20:28 Breathing Review of Systems General: Reports: 10 or more systems reviewed and unremarkable except in HPI and below Const: Denies: fever(s) or chills Eyes: Denies: change in vision or blurry vision ENMT: Denies: throat pain or mouth pain Card: Denies: chest pain or palpitations Resp: Denies: dyspnea or productive cough GI: Reports: abdominal pain and nausea; Denies: vomiting, pain on defecation or change in stool character : Denies: difficulty voiding Musc: Denies: extremity swelling, joint pain, joint swelling or deformity Skin/Breast: Denies: changes in skin color, dry skin, nail changes or change in hair Neuro: Denies: numbness in extremities or weakness in extremities Psych: Denies: anxiety Shahbaz/Lymph: Denies: easy bruising or easy bleeding PFSH ED PFSH: Social History Smoking and tobacco/nicotine status: unknown if used tobacco/nicotine Female Reproductive History: Date of last menstrual period: 07/04/25 Physical Exam Const: COMMON NORMALS: no acute distress, average body habitus and patient oriented x3 HENMT: COMMON NORMALS: normocephalic and atraumatic HEAD & SCALP: normocephalic and atraumatic Neck/C-Spine: GENERAL: Yes normal visual inspection, Yes trachea midline and Yes anterior neck swelling CERVICAL SPINE: Yes cervical ROM normal Chest: CHEST: Yes abnormal inspection of the chest (Right chest wall tenderness lower lateral) Resp: COMMON NORMALS: normal respiratory effort, No retractions and clear to auscultation bilaterally AUSCULTATION: clear to auscultation bilaterally GI: COMMON NORMALS: No hepatosplenomegaly present; negative for Soft to palpation INSPECTION: Yes normal to inspection AUSCULTATION: Yes Hypoactive bowel sounds present PALPATION: No Soft to palpation, Yes Firmness to palpation present (GI), Yes Tenderness to palpation present (GI) Details: RUQ, Yes Guarding due to palpation present (GI) in the RUQ, No Rigid due to palpation, Yes No hepatosplenomegaly present and No Hepatosplenomegaly present : COMMON NORMALS: Yes no CVA tenderness BLADDER/KIDNEY EXAM: Yes no CVA tenderness Back/Pelvis: COMMON NORMALS: no CVA tenderness Extremity: COMMON NORMALS: normal to inspection, full ROM and capillary refill normal Neuro: COMMON NORMALS: patient oriented x3 Psych: COMMON NORMALS: mental status grossly normal and Normal thought process present THOUGHT PROCESS: Normal thought process present Course Reevaluation(s): Reevaluation #1: No change. X-ray reviewed, appears to have large volume of retained stool. Patient declined lactulose. Vital Signs: Vital signs: Vital Signs Temperature 98.1 F 07/07/25 20:22 Pulse Rate 90 07/07/25 23:00 Respiratory Rate 12 07/07/25 20:22 Blood Pressure 119/69 07/07/25 23:00 Pulse Oximetry 98 07/07/25 23:00 Oxygen Delivery Me thod Room Air 07/07/25 23:00 MDM - Abdominal Pain Medical Decision Making patient is a 25-year-old female with recent left fifth metatarsal fracture, in a boot. She presents with worsening abdominal pain, x 1 week. This is predominantly on her bottom right rib space, and upper right upper quadrant. She does have association of shortness of breath. On examination, differentials were all considered, favoring cholecystitis, and obstipation. Patient stated she had fully had a bowel movement. She did not believe she had been constipated. Girlfriend question that she had been having some constipation. In any event, her x-rays were consistent with retained stool. Her exam was consistent with retained stool. Her laboratory data was consistent with retained stool. Despite all the evidence, patient was not trusting the diagnosis. I have asked her to return to ED to potentially expand workup if she continues to have issues, and to follow-up with her primary care physician. She did finally decide to take the lactulose, and try this route. Will send additional lactulose to the pharmacy. Patient will return to ED if she has further issues. Medical Records I reviewed the patient's medical records. Lab Data I reviewed the patient's lab results. 07/07/25 21:46 07/07/25 21:46 Labs/Radiology: Radiology Impressions Chest/Abdomen X-ray 07/07/25 21:34 IMPRESSION: No acute findings. Laboratory Results WBC 6.82 10^3/uL (3.29-11.43) 07/07/25 21:46 RBC 4.47 10^6/uL (3.85-5.65) 07/07/25 21:46 Hgb 12.80 g/dL (11.27-16.99) 07/07/25 21:46 Hct 38.8 % (36-47) 07/07/25 21:46 MCV 86.8 fl (85-98) 07/07/25 21:46 MCH 28.6 pg (27-33) 07/07/25 21:46 MCHC 33.0 g/dL (30-55) 07/07/25 21:46 RDW 12.2 % (12.1-15.1) 07/07/25 21:46 Plt Count 240 10^3/cmm (157-399) 07/07/25 21:46 MPV 10.5 fL (7.4-10.4) H 07/07/25 21:46 Neut % (Auto) 49.1 % 07/07/25 21:46 Lymph % (Auto) 39.6 % 07/07/25 21:46 George % (Auto) 7.3 % 07/07/25 21:46 Eos % (Auto) 3.1 % 07/07/25 21:46 Baso % (Auto) 0.6 % 07/07/25 21:46 Neut # (Auto) 3.35 10^3/uL (1.8-7.7) 07/07/25 21:46 Lymph # (Auto) 2.7 10^3/uL (0.8-4.8) 07/07/25 21:46 George # (Auto) 0.5 10^3/uL (0.2-0.9) 07/07/25 21:46 Eos # (Auto) 0.2 10^3/uL (0.0-0.8) 07/07/25 21:46 Baso # (Auto) 0.0 10^3/uL (0.0-0.1) 07/07/25 21:46 Nucleated RBC % (auto) 0 % 07/07/25 21:46 Nucleated RBCs # 0.0 /100WBC 07/07/25 21:46 Sodium 138 mmol/L (136-145) 07/07/25 21:46 Potassium 3.8 mmol/L (3.5-5.1) 07/07/25 21:46 Chloride 102 mmol/L (98-107) 07/07/25 21:46 Carbon Dioxide 27 mmol/L (22-29) 07/07/25 21:46 Anion Gap 12.8 (5-19) 07/07/25 21:46 BUN 9 mg/dL (6-20) 07/07/25 21:46 Creatinine 0.6 mg/dL (0.5-0.9) 07/07/25 21:46 GFR Calculation 121.8 mL/min (90-130) 07/07/25 21:46 Glucose 79 mg/dL (65-115) 07/07/25 21:46 Calculated Osmolality 284 mOsm/kg (285-295) L 07/07/25 21:46 Calcium 9.0 mg/dL (8.5-10.5) 07/07/25 21:46 Total Bilirubin 0.2 mg/dL (0.15-1.2) 07/07/25 21:46 AST 11 U/L (0-32) 07/07/25 21:46 ALT 9 U/L (0-33) 07/07/25 21:46 Alkaline Phosphatase 60 U/L (35-105) 07/07/25 21:46 Total Protein 7.2 g/dL (6.6-8.7) 07/07/25 21:46 Albumin 4.5 g/dL (3.5-5.2) 07/07/25 21:46 Globulin 2.7 g/dL (1.3-4.6) 07/07/25 21:46 Lipase 37 U/L (13-60) 07/07/25 21:46 Urine Color Yellow (Yellow) 07/07/25 23:33 Urine Appearance Cloudy (CLEAR) A 07/07/25 23:33 Urine pH 6.5 (5-7) 07/07/25 23:33 Ur Specific [place]ork 1.025 (1.005-1.030) 07/07/25 23:33 Urine Protein Negative (Negative) 07/07/25 23:33 Urine Glucose (UA) Negative (Normal) 07/07/25 23:33 Urine Ketones Trace (Negative) 07/07/25 23:33 Urine Blood Negative (Negative) 07/07/25 23: Urine Nitrate Negative (Negative) 07/07/25 23:33 Urine Bilirubin Negative (Negative) 07/07/25 23: Urine Urobilinogen 1.0 mg/dL (Negative) 07/07/25 23:33 Ur Leukocyte Esterase 1+ (Negative) A 07/07/25 23:33 Urine RBC 0-2 /hpf (0-2) 07/07/25 23:33 Urine WBC 6-10 /hpf (0-5) 07/07/25 23:33 Ur Squamous Epith Cells 0-5 /hpf (0-5) 07/07/25 23: Amorphous Sediment Not Reportable 07/07/25 23:33 Urine Bacteria 1+ /hpf (NONE) H 07/07/25 23:33 Hyaline Casts 0.40 /lpf 07/07/25 23:33 All radiology interpretation(s) finalized by discharge Discharge Plan Discharge Patient Disposition: Home Clinical Impression: Constipation Qualifiers: Constipation type: slow transit constipation Qualified Code(s): K59.01 - Slow transit constipation Condition: Stable Prescriptions: New lactulose 10 gram/15 mL solution 15 ml PO DAILY PRN (Reason: constipation) Qty: 237 0RF No Action tramadol 50 mg tablet 50 mg PO PRN PRN (Reason: Pain) albuterol sulfate 90 mcg/actuation HFA aerosol inhaler 2 puff inhalation Q6H PRN (Reason: shortness of breath or wheezing) Qty: 8.5 0RF cyclobenzaprine 10 mg tablet 10 mg PO TID PRN (Reason: muscle spasm) 7 Days Qty: 21 0RF (DME) carbon fiber insole See Rx Instructions .Route .MEDSUPPLY Qty: 1 0RF Rx Instructions: As directed venlafaxine 150 mg capsule,extended release 24hr 150 mg PO DAILY Discharge Orders: Discharge ED (Routine); Ordered 07/08/25 Ordered By: Josefina Rausch Referrals: Raul Espinosa [Primary Care Provider, Family Practice] Patient Instructions: Full Liquid Diet, Clear Liquid Diet (ED), Patient Portal & Tiera Instructions Activity Restrictions/Additional Instructions: - Clear liquid diet is indicated when you have ongoing nausea, and abdominal pain. As this improved with having a bowel movement, this can be advanced to full liquid diet. Instructions have been included - No additional concerns were noted on your testing today. If you continue to have issues, return to the ED for considering expanding your workup. -Follow-up with your primary care physician. Please call on Wednesday for an appointment. - Your laxatives have been sent to the pharmacy. If you have increasing stools/diarrhea, consider just taking a stool softener at that juncture to avoid ongoing stools. Print Language: Yakut Coding Level of Care Code ED Boring Machine Set Up Operator for Wyatt Spears
[2025-07-07 23:00] VITALS: BP 119/69; PULSE 90; O2SAT 98
[2025-07-07] MEDS: orphenadrine 30 mg/mL Inj 2 mL 60 MG IVP (23:10)
--- NOTE | 2025-07-07 23:14 | PC.NURSE ---
pt informed that we need a urine sample, pt states she doesn't have to go and that she will try after pain meds and fluids. Pt pain meds given and IVF started.
[2025-07-08 00:16] LABS: Add Urine Microscopic? YES; Glucose Urine UA Negative (Normal); Nitrate Urine Negative (Negative); Specific Gravity, Urine 1.025 (1.005-1.030)
[2025-07-08] MEDS: lactulose oral liq 20 gm/30 mL UDC 30 GM PO (00:54)
== END 2025-07-08 01:04 | disposition home or self-care (01) ==
PROVIDERS: Emergency Provider Physician Assistant; PCP Family Medicine
DX: K59.01 Slow transit constipation (principal)
CPT/HCPCS: 36415; 74022; 80053; 81001; 83690; 85025; 96361; 96374; 96375; 99284; J1885; J2360; J7120; J9999

== ENCOUNTER → 2025-07-10 12:48 | Outpatient (BNVA) | payer MEDICAID, SELFPAY | PROVIDERS: PCP Family Medicine; Visit Provider Family Medicine | DX: R05.9 Cough, unspecified (principal); S22.32XD Fracture of one rib, left side, subsequent encounter for fracture with routine healing; X58.XXXD Exposure to other specified factors, subsequent encounter | CPT/HCPCS: 71046 ==

== ENCOUNTER → 2025-07-19 13:49 | Outpatient (BNVA) | payer MEDICAID, SELFPAY | PROVIDERS: PCP Family Medicine; Visit Provider Podiatrist Foot & Ankle Surgery | DX: Z98.890 Other specified postprocedural states (principal); S92.352D Displaced fracture of fifth metatarsal bone, left foot, subsequent encounter for fracture with routine healing; X58.XXXD Exposure to other specified factors, subsequent encounter | CPT/HCPCS: 73630 ==

== ENCOUNTER → 2025-08-30 13:54 | Outpatient (BNVA) | payer MEDICAID, SELFPAY | PROVIDERS: PCP Family Medicine; Visit Provider Podiatrist Foot & Ankle Surgery | DX: Z98.890 Other specified postprocedural states (principal) | CPT/HCPCS: 73630 ==